=== PATIENT | male | born 1980 | race African-American/Black ===

== ENCOUNTER 2017-12-28 19:28 | Emergency (ER) | payer SELFPAY ==
[~2017-12-28] VITALS: Ht 177.8 cm; Wt 101.0 kg
[2017-12-28] MEDS ORDERED: OXYCODONE HCL/ACETAMINOPHEN 5/325MG TABLET PO ONE (23:00)
[2017-12-28] MEDS ORDERED: BACITRACIN ZINC 15GM TUBE TOP ONE (23:00)
[2017-12-29 00:18] VITALS: BP 144/92
== END 2017-12-29 00:52 | disposition home or self-care (01) ==
LOC: ER 20:59
DX: S20.411A Abrasion of right back wall of thorax, initial encounter (principal); S20.212A Contusion of left front wall of thorax, initial encounter; V29.69XA Unspecified motorcycle rider injured in collision with other motor vehicles in traffic accident, initial encounter; Y93.89 Activity, other specified; Y92.89 Other specified places as the place of occurrence of the external cause; Y99.8 Other external cause status; Z98.890 Other specified postprocedural states
CPT/HCPCS: 71101; 73060; 99284